=== PATIENT | female | born 1975 ===

== ENCOUNTER 2021-04-02 07:54 | Day surgery (SDC) | payer OTHER ==
[2021-03-31 13:22] LABS: BASOPHILS ABSOLUTE AUTO 0.04 K/mm3 (0.00-0.23); BASOPHILS PERCENT AUTO 1 % (0-2); EOSINOPHILS ABSOLUTE AUTO 0.12 K/mm3 (0.00-0.68); EOSINOPHILS PERCENT AUTO 2 % (0-6); Hematocrit 42.8 % (33.0-51.0); Hemoglobin 14.3 g/dL (11.5-16.0); IMMATURE GRAN ABSOLUTE AUTO 0.01 K/mm3 (0.00-0.10); IMMATURE GRAN PERCENT AUTO 0 % (0-1); LYMPHOCYTES ABSOLUTE AUTO 1.36 K/mm3 (0.84-5.20); LYMPHOCYTES PERCENT AUTO 23 % (21-46); MONOCYTES ABSOLUTE AUTO 0.65 K/mm3 (0.16-1.47); MONOCYTES PERCENT AUTO 11 % (4-13); Mean Corpuscular HGB 32.3 pg (26.0-34.0); Mean Corpuscular HGB Conc 33.4 g/dL (31.5-36.5); Mean Corpuscular Volume 97 fL (80-100); Mean Platelet Volume 10.2 fL (9.1-12.4); NEUTROPHILS ABSOLUTE AUTO 3.72 K/mm3 (1.96-9.15); NEUTROPHILS PERCENT AUTO 63 % (41-73); Platelet Count 214 K/mm3 (150-400); RDW Coefficient Variation 12.3 % (11.7-14.2); RDW Standard Deviation 44.1 fL (35.1-46.3); Red Blood Cell Count 4.43 M/mm3 (3.80-5.20)
[~2021-04-02] VITALS: Ht 152.4 cm; Wt 69.5 kg
--- NOTE | 2021-04-02 08:19 | NUR ---
History, Chart, Medications and Allergies reviewed before start of procedure.Patient confirms NPO status and agrees with scheduled surgery. Pre-Op teaching done. Pt verbalizes understanding.
--- NOTE | 2021-04-02 13:49 | NUR ---
PATIENT ARRIVED TO ROOM VIA CART, A/O DENIES DISCOMFORT. AMBULATED WITH STANDY BY ASSIST TO BR. VSS.
--- NOTE | 2021-04-02 17:09 | NUR ---
SHIFT SUMMARY PT STATUS POST FOR LAP HYSTER. PT C/O MINIMAL CRAMPING AND TREATED PER EMR. SHE IS UP WALKING, VOIDING, AND EATING/DRINKING WELL. NO C/O NAUSEA. VSS. MINIMAL BLEEDING NOTED ON ROXANNA PAD. WILL DC HOME TONIGHT.
[2021-04-02] MEDS ORDERED: ESTR2 PO (18:33)
--- NOTE | 2021-04-08 11:05 | NUR ---
04/08/21 1105 Mary Ann Monge VERIFICATIONS: EDIT CHART.
== END 2021-04-02 19:44 | disposition home or self-care (01) ==
LOC: SURS 07:54 → ORSCMMR 07:54 → ORD 09:30 → SURS 13:28 → ORSCMMR 19:44
PROVIDERS: Obstetrics & Gynecology
PROC: 8E0W4CZ Robotic Assisted Procedure of Trunk Region, Percutaneous Endoscopic Approach (ICD-10-PCS; principal; 2021-04-02 09:30)
PROC: 0UT94ZZ Resection of Uterus, Percutaneous Endoscopic Approach (ICD-10-PCS; principal; 2021-04-02 09:30)
PROC: 0UT24ZZ Resection of Bilateral Ovaries, Percutaneous Endoscopic Approach (ICD-10-PCS; principal; 2021-04-02 09:30)
PROC: 0UT74ZZ Resection of Bilateral Fallopian Tubes, Percutaneous Endoscopic Approach (ICD-10-PCS; principal; 2021-04-02 09:30)
PROC: 0WBH4ZX Excision of Retroperitoneum, Percutaneous Endoscopic Approach, Diagnostic (ICD-10-PCS; principal; 2021-04-02 09:30)
DX: N92.1 Excessive and frequent menstruation with irregular cycle (principal); D25.9 Leiomyoma of uterus, unspecified; N94.6 Dysmenorrhea, unspecified; N83.292 Other ovarian cyst, left side; N83.291 Other ovarian cyst, right side; F17.210 Nicotine dependence, cigarettes, uncomplicated
CPT/HCPCS: 58571; 49321; S2900; 36415; 84703; 85025; 86850; 86900; 86901; 88305; 88307; A9270; J0690; J1100; J1885; J2250; J2405; J2704; J3010; J7120